=== PATIENT | male | born 2000 | race Caucasian/White ===

== ENCOUNTER 2019-06-18 15:00 | Emergency (ER) | payer MEDICAID, OTHER ==
[~2019-06-18] VITALS: Ht 177.8 cm; Wt 73.0 kg
[2019-06-18] MEDS ORDERED: ONDANSETRON HCL 4MG/2ML INJ IV STA (16:11)
[2019-06-18] MEDS ORDERED: SODIUM CHLORIDE 0.9% 1,000 ML IV ONE (16:11)
[2019-06-18] MEDS ORDERED: MORPHINE SULFATE 4 MG/ML CPJ (NOT FOR IM USE) IV STA (16:11)
[2019-06-18 18:36] VITALS: BP 125/75
== END 2019-06-18 18:36 | disposition home or self-care (01) ==
LOC: ER 15:00
DX: S82.832A Other fracture of upper and lower end of left fibula, initial encounter for closed fracture (principal); X50.1XXA Overexertion from prolonged static or awkward postures, initial encounter; Y93.67 Activity, basketball; Y92.89 Other specified places as the place of occurrence of the external cause
CPT/HCPCS: 29515; 73610; 73630; 96374; 96375; 99283; J2270; J2405; J7030